=== PATIENT | male | born 1995 | race African-American/Black ===

== ENCOUNTER 2020-07-15 16:50 | Emergency (ER) | payer BC, OTHER ==
[~2020-07-15] VITALS: Ht 188 cm; Wt 83.0 kg
[2020-07-15 17:03] VITALS: BP 126/70
[2020-07-15] MEDS ORDERED: DIPH,PERTUSS(ACELL),TET VAC/PF 0.5 ML IM-VACC ONE (17:30)
== END 2020-07-15 17:52 | disposition home or self-care (01) ==
LOC: ED 17:30
DX: T22.111A Burn of first degree of right forearm, initial encounter (principal); T31.0 Burns involving less than 10% of body surface; X10.2XXA Contact with fats and cooking oils, initial encounter; Y93.G3 Activity, cooking and baking; Y92.009 Unspecified place in unspecified non-institutional (private) residence as the place of occurrence of the external cause; Y99.8 Other external cause status
CPT/HCPCS: 16020; 90471; 90715

== ENCOUNTER 2020-07-26 15:40 | Emergency (ER) | payer OTHER ==
[~2020-07-26] VITALS: Ht 157.5 cm; Wt 83.4 kg
[2020-07-26 15:53] VITALS: BP 156/54
[2020-07-26] MEDS ORDERED: METHOCARBAMOL 750 MG TABLET ONE (16:52)
[2020-07-26] MEDS ORDERED: KETOROLAC 30 MG/1 ML ONE (16:52)
[2020-07-26] MEDS ORDERED: METHOCARBAMOL 750 MG TABLET PO ONE (17:00)
[2020-07-26] MEDS ORDERED: KETOROLAC 30 MG/1 ML IM ONE (17:00)
[2020-07-26 17:23] LABS: MICROSCOPIC AUTO
--- NOTE | 2020-07-26 18:05 | NUR ---
PT BACK TO ROOM AT THIS TIME.
== END 2020-07-26 19:49 | disposition home or self-care (01) ==
LOC: ED 16:45
DX: S29.012A Strain of muscle and tendon of back wall of thorax, initial encounter (principal); M62.830 Muscle spasm of back; R10.9 Unspecified abdominal pain; X58.XXXA Exposure to other specified factors, initial encounter; Y93.89 Activity, other specified; Y92.89 Other specified places as the place of occurrence of the external cause; Y99.8 Other external cause status
CPT/HCPCS: 72072; 74176; 81001; 96372; 99285; J1885